=== PATIENT | female | born 1980 | race Caucasian/White ===

== ENCOUNTER → 2018-03-30 | Outpatient (CLI) | payer OTHER ==
--- NOTE | 2018-03-30 15:57 | US ---
EXAMINATION TYPE: Transabdominal DATE OF EXAM: 09/01/17 COMPARISON: NONE CLINICAL HISTORY: Z36 confirm [id number] EXAM PERFORMED: Transabdominal (TA) EXAM MEASUREMENTS: GESTATIONAL AGE / DATING Physician Established: Not yet established Dates by LMP: LMP unknown Dates by First Scan: No previous. This is first scan Dates by Current Scan for: (11 weeks/6 days) EDC: 10/13/2018 MATERNAL ANATOMY Uterus: 13.4 x 7.8 x 7.3cm. Right Ovary: 4.9 x 2.6 x 2.6cm seen lower pelvis Left Ovary: not seen Post CDS / Adnexa: wnl Presence of free fluid: no Presence of corpus luteal cyst: cystic structure seen in right ovary without peripheral color flow se en = 2.5 x 1.8 x 2.1cm Presence of subchorionic bleed: no GESTATION / SURVEY CRL: 5.1cm (11 weeks/6 days); placenta noted developing on posterior uterine wall Yolk Sac (normal less than 6mm): 5.5mm Heart Rate: 150 bpm Rhythm: Normal IUP: Live IUP Nuchal Translucency 10-14wks (normal less than 3mm): 0.8mm Date of LMP: unknown Beta HcG (if available): NA IMPRESSION: Single live intrauterine with a calculated sonographic age of 11 weeks and 6 days and heart rate of 150 bpm.
== END | disposition home or self-care (01) ==
LOC: RADUSWWP 14:57
PROVIDERS: ATTEND Obstetrics & Gynecology
DX: Z36.9 Encounter for antenatal screening, unspecified (principal); Z3A.11 11 weeks gestation of pregnancy
CPT/HCPCS: 76801; 76813

== ENCOUNTER → 2018-06-22 | Outpatient (CLI) | payer OTHER ==
--- NOTE | 2018-06-22 12:05 | US ---
EXAMINATION TYPE: US OB >= 14 wk fetus DATE OF EXAM: 06/22/2018 COMPARISON: US first trimester March 30, 2018. CLINICAL HISTORY: Z36 Follow up previous abnormal outside ultrasound.Bilateral choroid plexus cysts s een on anatomy scan at office. TECHNIQUE: Transabdominal (TA) GESTATIONAL AGE / DATING Physician Established: (23 weeks/6 days) EDC: 10/13/2018 Dates by LMP: LMP unknown Dates by First Scan: (23 weeks/6 days) EDC: 10/13/2018 Dates by Current Scan: (23 weeks/1 days) EDC: 10/18/2018 SURVEY IUP: Single PLACENTA: Posterior PREVIA: No Previa LIZBETH: 12.1 cm Normal CERVICAL LENGTH (transabdominal: norm > 3.0cm): 3.5 cm BIOMETRY PRESENTATION: Vertex BPD: 5.7 cm 23 weeks / 3 days HC: 21.4 cm 23 weeks / 3 days AC: 18.3 cm 23 weeks / 1 days FL: 4.2 cm 23 weeks / 5 days ESTIMATED WEIGHT IN GRAMS: 589 grams ESTIMATED WEIGHT IN LBS/OZ: 1 lbs. 5 oz. WEIGHT PERCENTAGE BASED ON ESTABLISHED DATES: 21% HC/AC: 1.2 Normal FL/AC: 22.9 Normal HEART RATE: 151 bpm RHYTHM: Normal Single live intrauterine gestation is redemonstrated. Normal cephalad presentation to fetus is curren tly seen. No cervical thinning is noted. No ultrasound evidence for placenta previa. Amniotic fluid i ndex is calculated within normal limits. biometry measurements and congruent and felt within no rmal limits. Four-chamber heart view is within normal limits. Scanning intracranial structures shows no hydrocephalus or identified cysts at level of choroid plexus towards end of study. IMPRESSION: As above.
== END | disposition home or self-care (01) ==
LOC: RADUSWWP 10:17
PROVIDERS: ATTEND Obstetrics & Gynecology
DX: Z36.9 Encounter for antenatal screening, unspecified (principal)
CPT/HCPCS: 76805

== ENCOUNTER 2018-10-18 06:08 | Inpatient (IN) | payer OTHER ==
--- NOTE | 2018-10-17 19:35 | P.HPOB ---
History of Present Illness H&P Date: 10/17/18 Chief Complaint: Induction of labor This is a 37-year-old female 4 para 2 with an estimated date of confinement of 10/13/2018, estimated gestational age of 40-5/7 weeks, who presents to labor and delivery for induction of labor secondary to postdates. Her course has been essentially uncomplicated. labs: Hepatitis B surface antigen-negative RPR-nonreactive Rubella-nonimmune Blood type-A+ Antibody screen-negative HIV-nonreactive Hemoglobin-10.2 Random glucose-79 Quad screen-negative Obstetrical ultrasound-normal anatomy One hour Glucola-78 Group B streptococcus-negative Obstetrical history: . History of 2 vaginal deliveries and 1 miscarriage. Gynecologic history: No history of sexual transmitted diseases. Social history: She is . 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 Review of Systems Constitutional: Denies chills, Denies fever Eyes: denies blurred vision, denies pain Ears, nose, mouth and throat: Denies headache, Denies sore throat Cardiovascular: Denies chest pain, Denies shortness of breath Respiratory: Denies cough Gastrointestinal: Reports abdominal pain (Irregular contractions), Denies diarrhea, Denies nausea, Denies vomiting Genitourinary: Reports pelvic pain, Reports Musculoskeletal: Reports low back pain Integumentary: Denies pruritus, Denies rash Neurological: Denies numbness, Denies weakness Psychiatric: Denies anxiety, Denies depression Past Medical History Past Medical History: Asthma Additional Past Medical History / Comment(s): CONSTIPATION -OCCASIONAL BLEEDING AFTER BM. ENVIRONMENTAL ALLERGIES. HAS NO INHALER @THIS TIME History of Any Multi-Drug Resistant Organisms: None Reported Additional Past Surgical History / Comment(s): D &C, REMOVAL LUMP LT BREAST Past Anesthesia/Blood Transfusion Reactions: No Reported Reaction Past Psychological History: No Psychological Hx Reported Smoking Status: Never smoker Past Alcohol Use History: None Reported Past Drug Use History: None Reported - Past Family History Mother Family Medical History: Cancer (Lungs) Medications and Allergies Home Medications Medication Instructions Recorded Confirmed Type Fsv-Iwoe-Ektxa Acid 1 cap PO DAILY 10/17/18 10/17/18 History [-U Capsule (formulary)] Allergies Allergy/AdvReac Type Severity Reaction Status Date / Time No Known Allergies Allergy Verified 04/07/14 09:04 Exam Osteopathic Statement: *. No significant issues noted on an osteopathic structural exam other than those noted in the History and Physical/Consult. HEENT: Within normal limits Heart: Regular rate and rhythm Lungs: Clear to auscultation bilaterally Abdomen: Cervix: 3-3-1/2 cm/60%/-1 station heart tones: 140s by Doppler Extremities: Negative Homans Assessment and Plan (1) Post-term , 40-42 weeks of gestation Status: Acute Code(s): O48.0 - POST-TERM SNOMED Code(s): 06653100 (2) Advanced maternal age (AMA) in Status: Acute Code(s): UHD5830 - SNOMED Code(s): 684638631 Plan: Proceed with oxytocin induction of labor. Epidural anesthesia if desired. Expectant management.
[2018-10-18] MEDS ORDERED: TERBUTALINE 1 MG/ML VIAL SQ PRN (06:22)
[2018-10-18] MEDS ORDERED: CARBOPROST TROMETHAMINE 250 MCG/ML 1 ML AMP IM PRN (06:22)
[2018-10-18] MEDS ORDERED: OXYTOCIN 10 UNIT/ML 1 ML VIAL IM PRN (06:22)
[2018-10-18] MEDS ORDERED: LIDOCAINE 1% 20 ML VIAL (10MG/ML) FOR IV START INTRADERMA PRN (06:22)
[2018-10-18] MEDS ORDERED: METHYLERGONOVINE 0.2 MG/ML 1 ML AMP IM PRN (06:22)
[2018-10-18] MEDS ORDERED: OXYTOCIN 30 UNITS/500 ML NS 30 UNIT in SALINE 1 500ML.BAG IV SCH (06:22)
[2018-10-18] MEDS ORDERED: LIDOCAINE 0.5% (PF) 5 MG/ML (50 ML SDV) SQ PRN (06:22)
[2018-10-18] MEDS: LACTATED RINGERS 1,000 ML IV SCH ×2 (06:33→10:37)
[2018-10-18 06:51] VITALS: RESP 16; BMI 29.0
[2018-10-18 06:51] LABS: Basophils % (A) 0 %; Eosinophils # (A) 0.4 k/uL (0-0.7); Eosinophils % (A) 4 %; HCT 33.6 % (34.0-46.0); HGB 11.2 gm/dL (11.4-16.0); Lymphocytes # (A) 1.9 k/uL (1.0-4.8); Lymphocytes % (A) 18 %; MCH 30.2 pg (25.0-35.0); MCHC 33.5 g/dL (31.0-37.0); MCV 90.2 fL (80.0-100.0); Mean Platelet Volume 7.2; Monocytes # (A) 0.6 k/uL (0-1.0); Monocytes % (A) 6 %; Neutrophils # (A) 7.2 k/uL (1.3-7.7); Neutrophils % (A) 70 %; Platelet Count 284 k/uL (150-450); RBC 3.72 m/uL (3.80-5.40); WBC 10.3 k/uL (3.8-10.6)
[2018-10-18] MEDS ORDERED: ROPIVACAINE 5MG/ML 20ML VIAL ONE (10:22)
[2018-10-18] MEDS ORDERED: SODIUM CHLORIDE 0.9% 100 ML BAG ONE (10:22)
[2018-10-18] MEDS ORDERED: fentaNYL (PF) 50 MCG/ML 5 ML AMP ONE (10:22)
[2018-10-18] MEDS ORDERED: ACETAMINOPHEN TAB 325 MG TAB PO PRN (14:56)
[2018-10-18] MEDS ORDERED: MEASLES-MUMPS-RUBELLA VACC/PF 12,500 UNIT/0.5 ML VIAL SQ ONE (14:56)
[2018-10-18] MEDS ORDERED: diphenhydrAMINE 50 MG/ML 1 ML VIAL IVP PRN ×2 (14:56)
[2018-10-18] MEDS ORDERED: ZOLPIDEM 5 MG TAB PO PRN (14:56)
[2018-10-18] MEDS ORDERED: diphenhydrAMINE 50 MG CAP PO PRN (14:56)
[2018-10-18] MEDS ORDERED: WITCH HAZEL 1 EACH MED..PAD TOPICAL PRN (14:56)
[2018-10-18] MEDS ORDERED: HYDROCORTISONE 2.5% RECTAL CREAM 30 GM TUBE RECTAL PRN (14:56)
[2018-10-18] MEDS ORDERED: LANOLIN CREAM 5 GM TUBE TOPICAL PRN (14:56)
[2018-10-18] MEDS ORDERED: SIMETHICONE 80 MG CHEWABLE PO PRN (14:56)
[2018-10-18] MEDS ORDERED: diphenhydrAMINE 25 MG CAP PO PRN (14:56)
[2018-10-18] MEDS ORDERED: BENZOCAINE/MENTHOL SPRAY 1 GM/SPRAY AEROSOL TOPICAL PRN (14:56)
[2018-10-18] MEDS ORDERED: OXYTOCIN 20 UNITS/1000 ML NS 1,000 ML IV SCH (14:56)
--- NOTE | 2018-10-18 17:02 | P.PROBDLV ---
Vaginal Delivery Note - . Vaginal Delivery Note: the patient progressed to complete dilation after oxytocin induction of labor and artificial rupture membranes with clear fluid noted. She did receive epidural anesthesia. Once reaching complete dilation, she began pushing. Infant's head came to a crown. With one further push, the infant's head delivered across the perineum and a left occiput anterior lie followed by the anterior shoulder. Nose and mouth were bulb suctioned at the perineum. With one further push the remainder the infant easily delivered. Nuchal cord times one was reduced around the body with delivery. Infant was placed on mother's abdomen and cord was clamped and cut. A viable male is noted with scores of 9 at 1 minute and 9 at 5 minutes. Infant weight is 7 pounds 2.6 ounces. Placenta delivered shortly thereafter, intact, with a three-vessel cord. Uterus contracted well after oxytocin was given and uterine massage was carried out. Inspection of the perineum revealed a small first-degree perineal laceration. This area was anesthetized with 1% lidocaine and then sutured with 3-0 Vicryl suture in a running locked fashion. Estimated blood loss is approximately 100 mL's. Both mother and infant are in stable condition.
[2018-10-18] MEDS: SENNOSIDES-DOCUSATE SODIUM 1 EACH TAB PO SCH (21:22)
[2018-10-19] MEDS: IBUPROFEN 600 MG TAB PO PRN ×2 (03:30→11:23)
[2018-10-19] MEDS: SENNOSIDES-DOCUSATE SODIUM 1 EACH TAB PO SCH (07:38)
[2018-10-19 07:43] LABS: Basophils % (A) 0 %; Eosinophils # (A) 0.3 k/uL (0-0.7); Eosinophils % (A) 2 %; HCT 29.9 % (34.0-46.0); HGB 9.9 gm/dL (11.4-16.0); Lymphocytes # (A) 2.3 k/uL (1.0-4.8); Lymphocytes % (A) 16 %; MCH 30.6 pg (25.0-35.0); MCHC 33.1 g/dL (31.0-37.0); MCV 92.5 fL (80.0-100.0); Mean Platelet Volume 7.4; Monocytes # (A) 0.7 k/uL (0-1.0); Monocytes % (A) 5 %; Neutrophils # (A) 11.2 k/uL (1.3-7.7); Neutrophils % (A) 76 %; Platelet Count 251 k/uL (150-450); RBC 3.23 m/uL (3.80-5.40); RDW 14.3 % (11.5-15.5); WBC 14.7 k/uL (3.8-10.6)
[2018-10-19 08:30] VITALS: BP 112/74; PULSE 66; TEMP 97.8
--- NOTE | 2018-10-19 08:54 | P.DS ---
Providers Date of admission: 10/18/18 06:08 Expected date of discharge: 10/19/18 Attending physician: Mary Anne Alford Primary care physician: Stated None - Discharge Diagnosis(es) (1) Post-term , 40-42 weeks of gestation Current Visit: No Status: Acute (2) Advanced maternal age (AMA) in Current Visit: No Status: Acute Hospital Course: This is a 37-year-old female 4 para 2 at 40-5/7 weeks who presented to labor and delivery for induction of labor secondary to postdates. She underwent oxytocin induction of labor and delivered a viable male infant on 10/18/2018 with scores of 9 at 1 minute and 9 at 5 minutes and infant weight of 7 pounds 2.6 ounces. Her course has been uncomplicated. Lochia is decreasing. She is breast-feeding. Vital signs are stable. Abdomen is soft with fundus firm and nontender. Extremities show negative Homans. Impression is status post vaginal delivery day #1. Plan is to discharge home today. Routine instructions are given. She is advised to follow-up in the office in 6 weeks. She will be given a prescription for ibuprofen and a breast pump to go home with. She is advised to call the office if she has any further questions or concerns prior to her appointment time. Procedures: Oxytocin induction of labor Spontaneous vaginal delivery of a viable male infant on 10/18/2018 Patient Condition at Discharge: Stable Plan - Discharge Summary New Discharge Prescriptions: New Ibuprofen [Motrin] 600 mg PO Q6HR PRN #60 tab PRN Reason: Mild Pain Or Fever >= 100.5 Continue Kgu-Olkz-Iibwj Acid [-U Capsule (formulary)] 1 cap PO DAILY No Action Albuterol Nebulized [Ventolin Nebulized] 2.5 mg INHALATION DIRECTED Discharge Medication List Ckn-Cfdi-Gdvbo Acid [-U Capsule (formulary)] 1 cap PO DAILY 10/17/18 [History] Albuterol Nebulized [Ventolin Nebulized] 2.5 mg INHALATION DIRECTED 10/18/18 [History] Ibuprofen [Motrin] 600 mg PO Q6HR PRN #60 tab 10/19/18 [Rx] Follow up Appointment(s)/Referral(s): Mary Anne Alford DO [Doctor of Osteopathic Medicine] - 6 Weeks Activity/Diet/Wound Care/Special Instructions: Instructions 1. Do not begin any exercise program for 3 weeks. 2. Do not resume sexual relations for 3 weeks or longer if uncomfortable. 3. You may take tub baths or showers at any time. 4. You may use tampons if desired after 3 weeks. 5. Keep the area of episiotomy (stitches) clean and dry. 6. If you are not nursing, wear a good fitting, supportive bra during the day and limit fluid intake for at least 1 week to prevent breast engorgement. 7. Call the office, [phone], within the next week to make appointment for your 6 week checkup if it has not already been made. 8. Report any of the following occurrences to the doctor promptly: a. Heavy, excessive bleeding b. Chills, fever c. Burning or frequency of urination d. Pain or redness and breasts if nursing e. Increasing pain or swelling in episiotomy (stitches). In addition to the above instructions, the following additional should be followed: 1. No heavy lifting or straining (exercising) until after 6 week checkup. 2. Keep abdominal incision clean and dry: You may wear a dressing if more comfortable. 3. Make office appointment for 10 days after going home or as instructed by her doctor. Discharge Disposition: HOME SELF-CARE
== END 2018-10-19 15:45 | disposition home or self-care (01) | DRG 807 ==
LOC: 4FBP 06:08
PROVIDERS: ADMIT Obstetrics & Gynecology; ATTEND Obstetrics & Gynecology
DX: O48.0 Post-term pregnancy (principal); Z37.0 Single live birth; Z3A.40 40 weeks gestation of pregnancy; O70.0 First degree perineal laceration during delivery; O99.52 Diseases of the respiratory system complicating childbirth; J45.909 Unspecified asthma, uncomplicated
CPT/HCPCS: 85025; 86850; 86900; 86901; 88307; 90471; 90707

== ENCOUNTER → 2022-05-10 | Outpatient (CLI) | payer OTHER ==
[2022-05-10 16:17] LABS: Basophils # (A) 0.04 X 10*3/uL (0.00-0.10); Basophils % (A) 0.5 %; Eosinophils # (A) 0.19 X 10*3/uL (0.04-0.35); Eosinophils % (A) 2.6 %; HCT 35.2 % (37.2-46.3); HGB 11.4 g/dL (12.0-15.0); Immature Grans, Automated 0.3 %; Lymphocytes # (A) 1.97 X 10*3/uL (0.90-5.00); Lymphocytes % (A) 26.6 %; MCH 30.1 pg (27.0-32.0); MCHC 32.4 g/dL (32.0-37.0); MCV 92.9 fL (80.0-97.0); Mean Platelet Volume 10.4 fL (9.5-12.2); Monocytes # (A) 0.45 X 10*3/uL (0.20-1.00); Monocytes % (A) 6.1 %; NRBC Per 100 WBC 0 /100 WBCS (0.0-0.0); Neutrophils # (A) 4.74 X 10*3/uL (1.80-7.70); Neutrophils % (A) 63.9 %; Platelet Count 268 X 10*3/uL (140-440); RBC 3.79 X 10*6/uL (4.10-5.20); RDW 12.4 % (11.5-14.5); WBC 7.41 X 10*3/uL (4.50-10.00)
== END | disposition home or self-care (01) ==
LOC: LABPAT 11:38
PROVIDERS: ATTEND Obstetrics & Gynecology
DX: Z01.812 Encounter for preprocedural laboratory examination (principal); D25.9 Leiomyoma of uterus, unspecified
CPT/HCPCS: 85025

== ENCOUNTER 2022-05-19 07:07 | Day surgery (SDC) | payer OTHER ==
--- NOTE | 2022-05-16 10:24 | P.HPOB ---
History of Present Illness H&P Date: 05/16/22 Chief Complaint: Prolapsing Endometrial Polyp Ms. Morin is a 41 year old who presents for a 3 month history of what she described as pelvic organ prolapse. She has regular monthly menses that are heavy with clots. She denies dysmenorrhea. LMP was 04/24/2022 and she is not using contraception. She is sexually active but has not been much since this prolapse started. She also describes back pain that began at the same time she noted the bulge from the vagina and feels that they are associated. Past Medical History Past Medical History: Asthma Additional Past Medical History / Comment(s): CONSTIPATION -OCCASIONAL BLEEDING AFTER BM. ENVIRONMENTAL ALLERGIES. HAS NO INHALER @THIS TIME History of Any Multi-Drug Resistant Organisms: None Reported Additional Past Surgical History / Comment(s): D &C, REMOVAL LUMP LT BREAST Past Anesthesia/Blood Transfusion Reactions: No Reported Reaction Past Psychological History: No Psychological Hx Reported Smoking Status: Never smoker Past Alcohol Use History: Rare Past Drug Use History: None Reported - Past Family History Mother Family Medical History: Cancer Medications and Allergies Home Medications Medication Instructions Recorded Confirmed Type Lyq-Qwgz-Zuola Acid 1 cap PO DAILY 10/17/18 10/18/18 History [-U Capsule (formulary)] Albuterol Nebulized [Ventolin 2.5 mg INHALATION DIRECTED 10/18/18 10/18/18 History Nebulized] Ibuprofen [Motrin] 600 mg PO Q6HR PRN #60 tab 10/19/18 Rx Allergies Allergy/AdvReac Type Severity Reaction Status Date / Time No Known Allergies Allergy Verified 10/18/18 06:22 Exam Focused exam is performed. This is an overweight female in no apparent distress. On auscultation there is regular rate and rhythm of the heart with normal S1, S2. Lungs sounds are clear to auscultation bilaterally. Abdominal exam shows a soft, nontender, and nondistended abdomen. A postvoid resiudal is collected which is 0 cc. On pelvic exam there is a 5-6cm long, 3-4 cm wide polypoid lesion that appears to be prolapsing through the cervix and obscures the full view of the cervix. On bimanual exam the uterus and adnexa are nontender with no masses appreciated. Assessment and Plan Assessment: 41 y/o presenting today for hysteroscopy, D&C with myosure device. Risks of bleeding, infection, uterine perforation, damage to surrounding structures were discussed. All questions answered. Patient desires to proceed with case as boarded. Time with Patient: Greater than 30
[2022-05-16 10:50] VITALS: BMI 25.0
[~2022-05-19 07:07] MED LIST: DEXAMETHASONE SOD PHOSPHATE 4 MG/ML 1 ML VIAL IV ONE; HYDROmorphone 0.5 MG/0.5 ML SYRINGE IVP PRN; LACTATED RINGERS 1,000 ML IV SCH; LIDOCAINE 1% (10MG/ML) FOR IV START INTRADERMA PRN; MIDAZOLAM 2 MG/2 ML VIAL IV PRN; ONDANSETRON 4 MG/2 ML VIAL IVP ONE
[2022-05-19] MEDS ORDERED: LIDOCAINE 2% INJ 20 MG/ML (2 ML VIAL) ONE (08:21)
[2022-05-19] MEDS ORDERED: fentaNYL (PF) 50 MCG/ML 2 ML AMP ONE (08:21)
[2022-05-19] MEDS ORDERED: PROPOFOL 10 MG/ML 20 ML VIAL IV ONE (08:21)
[2022-05-19] MEDS ORDERED: MIDAZOLAM 2 MG/2 ML VIAL ONE (08:21)
[2022-05-19] MEDS ORDERED: SCOPOLAMINE 1 MG/72 HR PATCH TRANSDERM ONE (08:24)
[2022-05-19] MEDS ORDERED: SILVER NITRATE APPLICATOR 1 EACH STICK..EA. TOPICAL ONE (08:51)
[2022-05-19 09:25] VITALS: RESP 16; TEMP 96.8
--- NOTE | 2022-05-19 09:46 | P.OP ---
Date of Procedure: 05/19/22 Preoperative Diagnosis: Prolapsing Endometrial Polyp Postoperative Diagnosis: Prolapsing endocervical polyp Procedure(s) Performed: Hysteroscopy Dilation and Curettage with Cervical Polypectomy Implants: None Anesthesia: KENIAA Surgeon: Justine Lutz Estimated Blood Loss (ml): 150 Urine output (ml): 25 Pathology: other (Endocervical polyp, endometrial curettings) Condition: stable Disposition: same day Indications for Procedure: 41 y/o with prolapsing mass through the cervix, suspected to be an endometrial polyp. She is presenting today for hysteroscopy, D&C with myosure device. Risks of bleeding, infection, uterine perforation, damage to surrounding structures were discussed. All questions answered. Patient desires to proceed with case as boarded. Operative Findings: 4 cm prolapsing endocervical polyp. Normal appearing endometrial cavity, sounded to 9 cm. Bilateral ostia visualized. No endometrial polyps or fibroids appreciated. Description of Procedure: The patient was taken to the operating room where a time out was performed to confirm correct patient and correct procedure. General anesthesia was established. The patient was then positioned on the operating table in dorsal lithotomy position in Simba type stirrups. The patient was then prepped and draped in the normal sterile fashion. Weighted speculum was introduced into the posterior fornix of the vagina and retractor was used to visualize the cervix. Aliss clamp/A single tooth tenaculum was used to grasp the anterior lip of the cervix. THe ring forceps were used to twist the prolapsing polyp at its stalk and the endocervical polyp was removed. The uterus was sounded to 9 centimeters. The cervical os was gently dilated with Domingo dilators in order to accommodate the 5mL 30 degree hysteroscope. The 5mL 30 degree hysteroscope was then introduced under direct visualization into the uterine cavity which was extended using sterile saline solution as the extending media. Bilateral ostia were visualized as well as the aforementioned findings above and pictures were taken. The hysteroscope was then taken out of the uterine cavity. Sharp curettage was performed on all gonzalez of the uterus until a gritty texture was felt yielding a moderate amount of tissue. The endometrial curettings were sent to pathology. All instruments were removed from the vagina. Patient tolerated the procedure well. Sponge, lap, needle, and instrument counts were correct times two. Patient was taken to recovery in stable condition. Patient will go home after meeting post operative milestones per anesthesia. Patient was given prescriptions for pain medication and instructions to follow up in the office in two weeks time.
[2022-05-19 10:14] VITALS: BP 103/73; PULSE 67
== END 2022-05-19 10:47 | disposition home or self-care (01) ==
LOC: OR 07:07
PROVIDERS: ATTEND Obstetrics & Gynecology
DX: N84.1 Polyp of cervix uteri (principal); J45.909 Unspecified asthma, uncomplicated; F10.90 Alcohol use, unspecified, uncomplicated; Z80.9 Family history of malignant neoplasm, unspecified; Z79.51 Long term (current) use of inhaled steroids; Z79.899 Other long term (current) drug therapy; Z79.1 Long term (current) use of non-steroidal anti-inflammatories (NSAID)
CPT/HCPCS: 58558; J1100; J0690; J2405; J1170; 81025; 88305

== ENCOUNTER → 2023-11-25 | Outpatient (CLI) | payer BC ==
--- NOTE | 2023-11-25 11:34 | CA ---
Exercise Stress Test Report Name: Latanya Morin Exam Date: 11/25/2023 10:45 Exam Location: [facility] Stress Ht (in): 60 Wt (lb): 129 BSA: 1.55 Ordering Phys: Lorenzo Peralta MD Referring Phys: LORENZO PERALTA Technologist: Judie Boston RDCS Age: 42 Gender: F : 1980 Procedure CPT: Indications: R00.2 PALPITATIONS R07.9 CHEST PAIN ICD-10 Codes: Patient History: Medications: NONE Meds past 24 hrs: Pretest Chest Pain: STRESS TEST Farshad Protocol Exercise Duration (min:sec): 09:[address] Depressions (mm): Angina Score: Alvarado Score: Resting HR (bpm): 98 Peak HR (bpm): 159 Resting BP (mmHg): 127 / 85 Peak BP (mmHg): 141 / 84 MPHR: 178 Target HR: 151 % MPHR: 89 METS: 10.9 Total Dose: Peak Dose: Atropine: Double Product: 92777 BP Response: Stress Termination: Reached target heart rate Stress Symptoms: NO SYMPTOMS Stress Summary: Patient exercised on Farshad protocol for 9 minutes 24 seconds achieving 89% of age-predicted heart rate. Patient was able to complete 10.9 METS. Patient had appropriate blood pressure response during the treadmill stress test. He did not report any chest pain chest pressure during the stress test. The test was terminated because of patient reaching target heart rate. ECG ANALYSIS Resting ECG: Normal sinus rhythm, normal ECG Stress ECG: No significant ST or T wave changes are diagnostic for ischemia by ST segment analysis. There were no sustained arrhythmias or ectopic beats noted during the stress test CONCLUSIONS Good exercise tolerance for patient's age achieving 10.9 METS Normal hemodynamic and clinical response to treadmill exercise Nonischemic ECG response to treadmill exercise Overall normal treadmill stress test Dr Jesus Monroe (Electronically Signed) Final Date: 25 November 2023 11:33
== END | disposition home or self-care (01) ==
LOC: RADNMMAIN 10:27
PROVIDERS: ATTEND Family Medicine
DX: R00.2 Palpitations (principal); R07.9 Chest pain, unspecified
CPT/HCPCS: 93017

== ENCOUNTER → 2024-08-22 | Outpatient (CLI) | payer BC ==
--- NOTE | 2024-08-22 10:23 | MM ---
Reason for Exam: Screening (asymptomatic). Baseline mammogram. Patient History: Menarche at age 11. First Full-Term at age 19. Premenopausal. Patient has history of breast feeding. Last menstrual period: 08/09/2024 Risk Values: Nan 5 year model risk: 0.6%. NCI Lifetime model risk: 7.8%. Prior Study Comparison: Patient's first Mammogram. Tissue Density: The breasts are heterogeneously dense, which may obscure small masses. Findings: Analyzed By CAD. No suspicious grouped calcifications segment of the right recommend spot compression view and small nodule seen along the outer margin of the right breast most likely related to tiny lymph nodes. Compression view also recommended. Overall Assessment: Incomplete: need additional imaging evaluation, BI-RAD 0 Management: Special View Mammogram of the right breast. . Patient should continue monthly self-breast exams. A clinical breast exam by your physician is recommended on an annual basis. This exam should not preclude additional follow-up of suspicious palpable abnormalities. Note on Nan scores and lifetime risk: 1. A Nan score greater than 3% is considered moderate risk. If this is the case, consider specialist referral to assess eligibility for a risk reducing agent. 2. If overall lifetime risk for the development of breast cancer is 20% or higher, the patient may qualify for future screening with alternating mammogram and breast MRI. [facility], , 08/22/2024 10:21 AM. Electronically signed and approved by: Marco Foley M.D. Radiologis
== END | disposition home or self-care (01) ==
LOC: RADMAMWWP 09:38
PROVIDERS: ATTEND Obstetrics & Gynecology
DX: Z12.31 Encounter for screening mammogram for malignant neoplasm of breast (principal); R92.333 Mammographic heterogeneous density, bilateral breasts
CPT/HCPCS: 77063; 77067

== ENCOUNTER → 2024-08-26 | Outpatient (CLI) | payer BC ==
--- NOTE | 2024-08-26 09:25 | USB ---
Reason for Exam: Additional evaluation requested from abnormal screening. Patient History: Menarche at age 11. First Full-Term at age 19. Premenopausal. Patient has history of breast feeding. Risk Values: Nan 5 year model risk: 0.6%. NCI Lifetime model risk: 7.8%. Technique: Method: Targeted. Prior Study Comparison: 08/22/2024 Bilateral MG 3D screening mammo w/cad, [facility]. Findings: The upper outer quadrant of the right breast, the lower outer quadrant of the right breast, the axilla of the right breast and the retroareolar of the right breast were scanned. A targeted ultrasound of the lateral right breast of the breast and axilla, retro-areolar region were there a couple benign-appearing cysts within the right breast. Measuring up to 8 mm. However, there is a solid-appearing nodule measuring 8 mm in the 11:00 position of the right breast. Overall Assessment: Suspicious, BI-RAD 4 Management: Ultrasound Core Biopsy of the right breast. A clinical breast exam by your physician is recommended on an annual basis and results should be correlated with mammographic findings. This exam should not preclude additional follow-up of suspicious palpable abnormalities. Results were given to the patient verbally at the time of exam. [facility], , 08/26/2024 9:22 AM. Electronically signed and approved by: Marco Foley M.D. Radiologis
--- NOTE | 2024-09-01 13:44 | MM ---
Reason for Exam: Additional evaluation requested from abnormal screening. Last screening mammogram was performed less than 1 month ago. Patient History: Menarche at age 11. First Full-Term at age 19. Premenopausal. Patient has history of breast feeding. Risk Values: Nan 5 year model risk: 0.6%. NCI Lifetime model risk: 7.8%. Prior Study Comparison: 08/22/2024 Bilateral MG 3D screening mammo w/cad, [facility]. Tissue Density: Right: The breasts are heterogeneously dense, which may obscure small masses. Findings: Analyzed By CAD. There appears to be dispersion of the density upon spot compression view. No suspicious calcifications. No persistent distortion. Ultrasound follow-up to assess the small subcentimeter nodules in the upper outer quadrant right breast. Overall Assessment: Incomplete: need additional imaging evaluation, BI-RAD 0 Management: Diagnostic Breast Ultrasound of the right breast. . Results were given to the patient verbally at the time of exam. Patient should continue monthly self-breast exams. A clinical breast exam by your physician is recommended on an annual basis. This exam should not preclude additional follow-up of suspicious palpable abnormalities. Note on Nan scores and lifetime risk: 1. A Nan score greater than 3% is considered moderate risk. If this is the case, consider specialist referral to assess eligibility for a risk reducing agent. 2. If overall lifetime risk for the development of breast cancer is 20% or higher, the patient may qualify for future screening with alternating mammogram and breast MRI. [facility], , 08/26/2024 8:36 AM. Electronically signed and approved by: Marco Foley M.D. Radiologis
== END | disposition home or self-care (01) ==
LOC: RADMAMWWP 08:06
PROVIDERS: ATTEND Obstetrics & Gynecology
DX: R92.8 Other abnormal and inconclusive findings on diagnostic imaging of breast (principal); R92.331 Mammographic heterogeneous density, right breast; N60.01 Solitary cyst of right breast
CPT/HCPCS: 77061; 77065

== ENCOUNTER → 2024-09-07 | Day surgery (SDC) | payer BC ==
--- NOTE | 2024-09-07 08:34 | USB ---
Risk Values: Nan 5 year model risk: 0.6%. NCI Lifetime model risk: 7.8%. Electronically signed and approved by: Layla Morillo M.D. Radiologist
== END ==
LOC: RADUSWWP 07:16
PROVIDERS: ATTEND Surgery
DX: Z53.8 Procedure and treatment not carried out for other reasons (principal); R92.8 Other abnormal and inconclusive findings on diagnostic imaging of breast